=== PATIENT | female | born 2000 | race Caucasian/White ===

== ENCOUNTER 2021-11-04 00:01 | Inpatient (IN) | payer OTHER, SELFPAY ==
[2021-11-04] VITALS (89 sets, daily range): BP systolic 69–155; BP diastolic 28–128; PULSE 66–226; RESP 16–18; TEMP 35.9–37.2; O2SAT 89–100; BMI 41.3
--- NOTE | 2021-11-04 00:59 | LDADM ---
This patient, Tiffany Khan, was admitted to Labor/Delivery/Recovery 106 on 11/04/21 at 00:01. Plans for labor, pain management and were discussed with patient. Patient/family oriented to hospital policies and general routines including ID bracelet, bed and alarms, visiting hours, pain management, procedures, bathroom and other care routines, personal items, smoking policy, room service/diet and guest tray routines, security routines, and visiting hours. Patient/Family are encouraged to report perceived risks to care and to ask questions if they do not understand what they are told or what they should do. See OBIX for further documentation.
[2021-11-04 01:29] LABS: Basophils Absolute Auto 0.1 K/mm3 (0.0-0.1); Basophils Percent Auto 0.3 % (0.2-1.2); Eosinophils Absolute Auto 0.2 K/mm3 (0-0.3); Eosinophils Percent Auto 1.1 % (0-4.4); Hematocrit 34.1 % (37.0-47.0); Hemoglobin 10.9 g/dL (12.0-15.0); Immature Granulocyte Absolute 0.08 K/mm3 (0.00-0.031); Immature Granulocyte Percent A 0.5 % (0-0.5); Lymphocytes Absolute Auto 3.14 K/mm3 (0.9-3.2); Lymphocytes Percent Auto 21.6 % (18.3-44.2); Mean Corpuscular Hemoglobin 24.9 pg (26-34); Mean Platelet Volume 11.1 fl (7.4-10.4); Monocytes Percent Auto 6.9 % (2.6-8.5); Neutrophils Absolute Auto 10.1 K/mm3 (1.3-6.7); Neutrophils Percent Auto 69.6 % (45.5-73.1); Platelet Count Result 248 k/mm3 (150-375); Red Blood Count 4.37 M/mm3 (4.2-5.4); Red Cell Distribution Width 14.3 % (11.5-14.5); White Blood Count 14.6 K/mm3 (4.5-10.0)
[2021-11-04] MEDS: OXYTOCIN 30 UNITS/NS 500 ML 30 UNITS/500 ML BAG IV CONT (01:50)
[2021-11-04] MEDS: LACTATED RINGERS 1,000 ML 125 ML IV CONT ×4 (01:50→15:58)
--- NOTE | 2021-11-04 08:18 | WPDANESEPP ---
Anes - Eval Pre Procedure Procedure: labor epidural Date/Time: 11/04/21 08:18 Pre Op Diagnosis: IOL Patient Data Age: 21 Gender: F Height: 1.63 m Weight: 109.1 kg Last Vital Signs Temp 36.2 C L 11/04/21 07:00 Pulse 80 11/04/21 08:01 Resp 18 11/04/21 05:15 BP 105/69 11/04/21 08:01 O2 Del Method Room Air 11/04/21 07:33 Allergies Allergy/AdvReac Type Severity Reaction Status Date / Time No Known Allergies Allergy Unknown Verified 11/04/21 04:18 Home Medications Medication Instructions Recorded Confirmed Type vitamins-iron fumarate 65 1 tablet PO DAILY 05/15/21 11/04/21 History mg iron-folic acid 1 mg tablet Laboratory Tests 11/04/21 11/04/21 11/04/21 00:28 00:28 00:28 WBC 14.6 K/mm3 H K/mm3 (4.5-10.0) RBC 4.37 M/mm3 M/mm3 (4.2-5.4) Hgb 10.9 g/dL L g/dL (12.0-15.0) Hct 34.1 % L % (37.0-47.0) MCV 78.0 fl L fl (80-100) MCH 24.9 pg L pg (26-34) MCHC 32.0 g/dl g/dl (32-36) RDW 14.3 % % (11.5-14.5) Plt Count 248 k/mm3 k/mm3 (150-375) MPV 11.1 fl H fl (7.4-10.4) Immature Gran % (Auto) 0.5 % % (0-0.5) Neut % (Auto) 69.6 % % (45.5-73.1) Lymph % (Auto) 21.6 % % (18.3-44.2) Gilchrist % (Auto) 6.9 % % (2.6-8.5) Eos % (Auto) 1.1 % % (0-4.4) Baso % (Auto) 0.3 % % (0.2-1.2) Lymph # (Auto) 3.14 K/mm3 K/mm3 (0.9-3.2) Gilchrist # (Auto) 1.0 K/mm3 H K/mm3 (0.1-0.6) Eos # (Auto) 0.2 K/mm3 K/mm3 (0-0.3) Baso # (Auto) 0.1 K/mm3 K/mm3 (0.0-0.1) Abs Immat Gran (auto) 0.08 K/mm3 H K/mm3 (0.00-0.031) Absolute Neuts (auto) 10.1 K/mm3 H K/mm3 (1.3-6.7) Absolute Nucleated RBC 0.0 K/mm3 K/mm3 (0.0-0.012) Nucleated RBC % 0.0 % % (0.0-0.2) RPR Pending Blood Type A Positive Antibody Screen Negative Patient hx anesthesia problems: none Family hx anesthesia problems: none Results Review: All pre-operative results and documents have been reviewed as part of the pre-operative evaluation. [facility] Past Medical History Medical History (Updated 11/04/21 @ 08:19 by Val Nicole CRNA) Anxiety GERD (gastroesophageal reflux disease) Headache Kidney infection hx of kidney infections Morbid obesity Suppression of menstruation Surgical History Surgical History History of gynecological procedure (01/02/20) nexplanon removal History of gynecological procedure (05/08/19) nexplanon insertion History of gynecological procedure (05/07/19) mirena iud removal History of gynecological procedure (05/18/18) mirena iud insertion History of gynecological procedure (08/12/15) nexplanon removal History of gynecological procedure (06/14/13) neplanon insertion Family History Family History Other Unknown family medical history Social History Social History Smoking status: Former smoker Alcohol intake: never Substance use: former Substance use type: marijuana Last use: 04/27/2021 Additional living arrangements comments: boyfriend Additional occupation/education comments: [employer] Gender identity (if verbalized by the patient): Female Sexual Orientation (if Verbalized by the Patient): Straight or Heterosexual Spiritual care concerns: No Exam Day of Procedure 11/04/21 08:18 Patient weight: morbidly obese Lungs: normal air movement Airway: Mallampati scale Neurological: alert and oriented
[2021-11-04 09:22] LABS: Rapid Plasma Reagin Non-Reactive (NonReactive)
[2021-11-04] MEDS: CALCIUM CARBONATE (TUMS) 500 MG (200 MG ELEMENTAL) PO (16:39)
--- NOTE | 2021-11-04 17:22 | WPDHPUPDATE1 ---
History and Physical Update Update Date/Time: 11/04/21 17:22 History and Physical has been reviewed, including an updated exam of the patient. There are NO changes in the patient's condition. Risks, benefits, and alternatives have been discussed and questions answered. Patient agrees to proceed with procedure.
--- NOTE | 2021-11-04 17:22 | WPDOBADMIT ---
Obstetrics - Admit Note Admission Note: record reviewed. No pertinent additions to the history and/or any subsequent changes in the physical findings that are not consistent with the expected course of the were found. Additions to the history and/or subsequent changes in the physical findings follow. None.
--- NOTE | 2021-11-04 17:22 | PM.OBPRVD ---
OB - Delivery Note Procedure Induction method: Per Pitocin Protocol Delivery augmentation: Rupture of Membranes Delivery monitor: External FHT and External Uterine Route of delivery: Episiotomy description: Other Laceration Description: None Specimen: Yes Quantitative Blood Loss (ml): 350 Anesthesia type: Epidural Disposition: Floor Complications: None Narrative: patient prepped usual manner for this procedure. Maternal expulsive efforts delivered vertex over intact perineum. Rest of baby delivered without difficulty. Placenta then delivered spontaneously as well. Cervix vagina vulva were inspected with no lacerations or tears. Uterus was well contracted with minimal bleeding. At this point seizure was considered terminated with immediate postoperative condition of mother and baby both excellent. Baby Weeks of gestation at delivery: 39 Infant gender: Female Weight (pounds): 7 Weight (ounces): 1 presentation: vertex Placenta delivery description: Spontaneous score one minute: 9 score five minutes: 9 AMG Delivery Billing Delivery Delivery: Delivery Charge
[2021-11-04] MEDS: WITCH HAZEL 40 PADS 1 PAD TOPICAL (20:05)
[2021-11-04] MEDS: BENZOCAINE 20% AER SPR (*SP) 56 GM CAN 1 SPRAY TOPICAL (20:05)
--- NOTE | 2021-11-04 20:08 | OBPPTRN ---
Patient transferred to post room #280 via w/c. Oriented to unit, room, information board, rooming in, admission packet and security measures. Patient verbalizes understanding.
[2021-11-04] MEDS: IBUPROFEN 600 MG TABLET PO (21:06)
[2021-11-05 00:10] VITALS: BP 120/72; PULSE 75; RESP 16; TEMP 37.2
[2021-11-05 04:30] VITALS: BP 103/65; PULSE 89; RESP 18; TEMP 36.8
[2021-11-05] MEDS: IBUPROFEN 600 MG TABLET PO (04:32)
--- NOTE | 2021-11-05 08:00 | PM.OBDSVD ---
DS: Admitting Diagnosis Discharge Date 11/05/2021 Admitting Diagnosis OB - DS: Summary OB Procedures : None OB Procedures Intrapartum: Spontaneous Vag Delivery OB Procedures: : None Time Spent with Patient Time attestation: Total time spent providing and/or coordinating discharge services: DS: Data Data Completed and Pending Pending studies at discharge: Pending at discharge 11/04/21 15:19 Surgical [PTH] Routine Labs on day of discharge: Labs from last 24 hours 11/04/21 00:28 RPR Non-reactive Discharge Plan Discharge Discharging Clinician: Kit Jamison Patient Disposition: Home, Self-Care Activity: as tolerated Diet: as tolerated Patient Instructions: Antibiotic Form Stand Alone Forms: General Discharge Information Follow-up/Referrals: Kit Jamison MD [Physician] - 3 Weeks Discharge Medications: New ibuprofen 600 mg Tablet 600 mg PO Q6H PRN (Reason: Cramping) Qty: 30 0RF Continued vit-iron fum-folic ac 65 mg iron- 1 mg tablet 1 tablet PO DAILY Date of admission: 11/04/21 00:01 Primary Care Provider: PHYSICIAN,TYPE PHOTOGRAPHY SUPERVISOR Admitting Provider: Kit Jamison Attending physician on admission: Kit Jamison Condition: Stable
[2021-11-05 08:08] LABS: Hematocrit 33.1 % (37.0-47.0); Hemoglobin 10.7 g/dL (12.0-15.0)
[2021-11-05 08:35] VITALS: BP 108/75; PULSE 78; RESP 18; TEMP 36.8; O2SAT 100
[2021-11-05 09:00] VITALS: PULSE 87; RESP 16; O2SAT 99
[2021-11-05] MEDS: DOCUSATE SODIUM 100 MG CAPSULE PO (09:29)
[2021-11-05] MEDS: MULTIVIT/MIN/PREN/FOL AC/IRON TABLET 1 TAB PO (09:29)
[2021-11-05] MEDS: ACETAMINOPHEN 325 MG TABLET 650 MG PO (09:29)
[2021-11-05] MEDS: LANOLIN (LANSINOH) 7.5 GM CREAM 1 APPLIC TOPICAL (09:30)
[2021-11-05 11:44] VITALS: BP 124/68; PULSE 87; RESP 16; TEMP 36.4; O2SAT 99
[2021-11-05 12:00] VITALS: PULSE 87; RESP 16; O2SAT 99
--- NOTE | 2021-11-05 16:25 | PC.NURSE ---
[id number] Introductions were made, then consulted with patient to assess needs related to . Mother led the conversation with her experience feeding her so far and is sitting straight up in bed hunched over infant . Mother works well with her with encouragement and education to achieve a more comfortable position. Encouraged understanding of the benefits of skin to skin (unwrapping infant and placing vertically on her chest), responsive feeding and how to watch for early feeding signs, frequency of feeding on demand about every 8-12 times in 24 hours (every 2-3 hours), milk production, duration of feeding, signs of adequate intake/output and how to record on the feeding sheet. Reviewed positioning and ear, shoulder, hip alignment, supporting the breast, asymmetrical latch (off-center), and leading with the chin with a big open side gape. latched optimally to the left breast in football position. Education given to mother of how to visualize suck/swallow ratios and drinking at the breast. Infant was able to maintain latch without discomfort to mother. Nipple care reviewed with optimal latch and good positioning. Reminding mother of comfort measures of healing with a warm and wet washcloth to rinse breast, then leave open to air-dry as needed. Reviewed good handwashing when or touching the breast/nipples to prevent infection. Resources used to facilitate learning were used with the mom and baby guide. Mother voiced understanding of responsive feedings, stimulating with skin to skin, hand expressed colostrum, touch, talking to infant to encourage if it has been 2 -3 hours since the start of the last , to call if does not latch or there is discomfort with . Reported to the primary RN. 1306 - RN was requested to check on patient for . Mother verbalizes she is able to independently latch with appropriate positioning/alignment after repositioning. She denies any nipple discomfort and is responsively . Infant is currently meeting outcomes for weight, output, jaundice and feeding frequencies of 8-12 times in 24 hours. Mother declines any additional assistance/education at this time. Mother is encouraged to call for assistance if her doesn?t latch or there is discomfort with latching. Mother voiced understanding of information shared and mom and baby guide reviewed for additional resource information .
--- NOTE | 2021-11-05 17:40 | WPDANLDPN2 ---
Anes-Prog Note L&D Date/Time: 11/05/21 17:40 Comfortable throughout: labor and delivery Neuraxial method: epidural Epidural/Spinal procedure site: clean & non-tender Neuro status: Neuro function grossly intact. Cardiovascular status: normal Respiratory status: normal Airway patency: baseline Mental status: baseline Vital Signs: Last Vital Signs Temp 36.4 C 11/05/21 11:44 Pulse 87 11/05/21 12:00 Resp 16 11/05/21 12:00 BP 124/68 11/05/21 11:44 Pulse Ox 99 11/05/21 12:00 O2 Del Method Room Air 11/05/21 12:00 Pain score (VAS): 0 I/O: Intake & Output 11/05/21 11/05/21 11/05/21 07:59 15:59 23:59 Intake Total 500 Balance 500 Patient feedback: Patient satisfied with anesthetic care.
--- NOTE | 2021-11-05 19:20 | PC.NURSE ---
Patient unable to get a ride to her follow up appointment on Tuesday so it was rescheduled for Tuesday 11/07 at 1100.
[2021-11-07 11:28] VITALS: BP 116/79; PULSE 81; RESP 20; TEMP 36.8; O2SAT 98
== END 2021-11-05 19:20 | disposition home or self-care (01) | DRG 560 ==
LOC: ANHLDR 00:03 → ANHOB2 20:10
PROVIDERS: Admitting Provider Obstetrics & Gynecology; Visit Provider Obstetrics & Gynecology
DX: O99.62 Diseases of the digestive system complicating childbirth (principal); Z37.0 Single live birth; Z3A.39 39 weeks gestation of pregnancy; K21.9 Gastro-esophageal reflux disease without esophagitis
CPT/HCPCS: 36415; 85014; 85018; 85025; 86592; 86850; 86900; 86901; 88307; A9270; J2590; J2795; J7120

== ENCOUNTER 2025-03-17 00:56 | Emergency (ER) | payer OTHER, SELFPAY ==
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
[2025-03-17 01:00] VITALS: BP 132/78; PULSE 96; RESP 23; TEMP 36.4; O2SAT 93
--- NOTE | 2025-03-17 01:10 | PC.NURSE ---
OB called to monitor baby.
[2025-03-17] MEDS: ACETAMINOPHEN 500 MG TABLET 1000 MG PO (01:57)
[2025-03-17] MEDS: ONDANSETRON HCL ODT 4 MG TABLET PO (01:58)
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
[2025-03-17 02:18] LABS: Add Urine Microscopic? YES; Appearance Urine Clear (Clear); Glucose Urine UA Negative (Negative); Leukocyte Esterase Ur Negative LEU/UL (Negative); Need Manual Microscopic Reviewed; Nitrate Urine Negative (Negative); Specific Grav Ur 1.017 (1.001-1.035)
--- NOTE | 2025-03-17 03:01 | WNDPHOTO ---
PHOTO ONLY - See Nursing Notes and/ or assessments for documentation.
--- NOTE | 2025-03-17 03:06 | WNDPHOTO ---
Addendum entered by Nunu Andrews RN 03/17/25 03:07: Original Note: PHOTO ONLY - See Nursing Notes and/ or assessments for documentation.
[2025-03-17 06:34] VITALS: BP 132/87; PULSE 86; RESP 18; TEMP 36.6; O2SAT 100
== END 2025-03-17 06:40 | disposition home or self-care (01) ==
PROVIDERS: Emergency Provider Emergency Medicine
DX: O9A.212 Injury, poisoning and certain other consequences of external causes complicating pregnancy, second trimester (principal); S02.2XXA Fracture of nasal bones, initial encounter for closed fracture; S00.83XA Contusion of other part of head, initial encounter; S40.012A Contusion of left shoulder, initial encounter; O99.612 Diseases of the digestive system complicating pregnancy, second trimester; K21.9 Gastro-esophageal reflux disease without esophagitis; O99.212 Obesity complicating pregnancy, second trimester; E66.01 Morbid (severe) obesity due to excess calories; Z87.891 Personal history of nicotine dependence; Z3A.20 20 weeks gestation of pregnancy; Y04.2XXA Assault by strike against or bumped into by another person, initial encounter
CPT/HCPCS: 70450; 70486; 72125; 73030; 81001; 99284; A9270